=== PATIENT | male | born 1990 | race Caucasian/White ===

== ENCOUNTER 2023-09-11 07:00 | Outpatient (RCR) | payer OTHER, SELFPAY | END 2024-01-31 10:58 | disposition home or self-care (01) | LOC: HO.PTCHIC 07:00 | PROVIDERS: PCP Nurse Practitioner Family; Visit Provider Orthopaedic Surgery | DX: S43.101D Unspecified dislocation of right acromioclavicular joint, subsequent encounter (principal) | CPT/HCPCS: 97110; 97161 ==

== ENCOUNTER → 2024-03-08 08:55 | Outpatient (BNVA) | payer SELFPAY | PROVIDERS: PCP Nurse Practitioner Family; Visit Provider Physician Assistant | DX: Z02.79 Encounter for issue of other medical certificate (principal) ==